=== PATIENT | female | born 1955 | race African-American/Black ===

== ENCOUNTER 2016-12-08 11:01 | Emergency (ER) | payer MEDICAID, OTHER ==
[~2016-12-08] VITALS: Ht 160 cm; Wt 90.0 kg
[~2016-12-08 11:01] MED LIST: ASPI-1035 PO; BENA10TA3 PO; CALC-4 PO; FERR-63 PO; GLIP10TA10 PO; METF10002 PO; NAPR220C15 PO; PIOG15TA23 PO
[2016-12-08] MEDS ORDERED: SODIUM CHLORIDE 0.9% 10ML VIAL ONE (12:03)
[2016-12-08] MEDS ORDERED: IOHEXOL-300 100 ML BOTTLE ONE (12:03)
[2016-12-08 16:26] LABS: CHLORIDE 100 mEq/L (98-107); INDEX HEMOLYSI 1 (1-3); INDEX ICTERIC 1 (1-4); INDEX LIPEMIC 1 (1-3)
[2016-12-08 16:28] LABS: BASOPHILS % 0.4 % (0.0-2.0); EOSINOPHILS % 0.2 % (0.0-5.0); HEMATOCRIT. 41.5 % (36.0-48.0); HEMOGLOBIN. 13.6 g/dL (12.0-16.0); LYMPHOCYTES % 18.7 % (20.0-50.0); MEAN CORPUSCULAR HEMOGLOBIN 28.7 pg (28.0-32.0); MEAN CORPUSCULAR HGB CONC 32.7 g/dL (31.0-37.0); MEAN CORPUSCULAR VOLUME 87.6 fL (81.0-99.0); MEAN PLATELET VOLUME 7.1 fl (7.4-10.4); MONOCYTES % 3.9 % (2.0-8.0); NEUTROPHILS % 76.8 % (40.0-76.0); PLATELET 380 x1000/uL (130-400); RED BLOOD CELL COUNT 4.74 mill/uL (4.2-5.4); RED CELL DISTRIBUTION WIDTH 14.1 % (11.6-14.6); WHITE BLOOD COUNT 12.6 x1000/uL (4.5-11.0)
[2016-12-08 16:31] LABS: ALBUMIN 3.9 g/dL (3.4-5.0); ANION GAP 12; CALCIUM 9.8 mg/dL (8.5-10.1); CARBON DIOXIDE 30 mEq/L (21-32); UREA NITROGEN BLOOD 13 mg/dL (7-21)
[2016-12-08 16:33] LABS: HCG SCREEN NEGATIVE
[2016-12-08 16:34] LABS: ALANINE AMINOTRANSFERASE 19 IU/L (13-61); LIPASE 129 IU/L (73-393); eGFR > 60 mL/min (>60)
[2016-12-08] MEDS ORDERED: ONDANSETRON HCL 4MG/2ML VIAL IV STA (17:06)
[2016-12-08] MEDS ORDERED: SODIUM CHLORIDE 0.9% 1,000 ML IV ONE ×2 (17:06→18:25)
[2016-12-08] MEDS ORDERED: MORPHINE SULFATE 4 MG/ML CPJ (NOT FOR IM USE) IV STA (17:06)
[2016-12-08] MEDS ORDERED: LORAZEPAM 2MG/ML CPJ IV ONE (17:15)
[2016-12-08 17:44] LABS: CREATINE KINASE 84 IU/L (26-192); INDEX HEMOLYSI 1 (1-3); TROPONIN I < 0.02 ng/mL (0.00-0.04)
[2016-12-08] MEDS ORDERED: ACETYLCYSTEINE 200MG/ML 20% VIAL 4ML PO ONE (18:30)
[2016-12-08 18:55] LABS: CLARITY URINE CLEAR (CLEAR); COLOR URINE YELLOW (YELLOW); GLUCOSE URINE NEGATIVE (NEGATIVE); KETONES URINE 1+ (NEGATIVE); LEUKOCYTE ESTERASE URINE TRACE (NEGATIVE); NITRITE URINE NEGATIVE (NEGATIVE); OCCULT BLOOD URINE NEGATIVE (NEGATIVE); PH URINE >=9.0 (4.5-8.0); PROTEIN URINE TRACE (NEGATIVE); SPECIFIC GRAVITY URINE 1.016 (1.005-1.030)
[2016-12-08 19:47] LABS: SQUAMOUS EPITHELIAL CELL URINE FEW /lpf (RARE/1+)
[2016-12-08 19:48] LABS: BACTERIA URINE 1+; WBC URINE 0-2 /hpf (0-2)
[2016-12-08 22:40] VITALS: BP 138/80
== END 2016-12-08 23:58 | disposition home or self-care (01) ==
LOC: ER 11:02
DX: K86.89 Other specified diseases of pancreas (principal); R10.13 Epigastric pain; I10 Essential (primary) hypertension; R11.2 Nausea with vomiting, unspecified; E11.9 Type 2 diabetes mellitus without complications; R19.7 Diarrhea, unspecified; Z90.49 Acquired absence of other specified parts of digestive tract
CPT/HCPCS: 36415; 71010; 74177; 76705; 80053; 81001; 82550; 82553; 83690; 84484; 84703; 85025; 93005; 96361; 96374; 96375; 99285; A4216; J2060; J2270; J2405; J7030; J7608; Q9967

== ENCOUNTER 2016-12-09 07:12 | Emergency (ER) | payer MEDICAID ==
[~2016-12-09] VITALS: Ht 157.5 cm; Wt 87.0 kg
[2016-12-09] MEDS ORDERED: FAMOTIDINE 20MG/2ML VIAL IV STA (08:12)
[2016-12-09] MEDS ORDERED: SODIUM CHLORIDE 0.9% 1,000 ML IV ONE (08:12)
[2016-12-09] MEDS ORDERED: METOCLOPRAMIDE HCL 10MG/2ML VIAL IV STA (08:12)
[2016-12-09 08:27] LABS: BASOPHILS % 0.5 % (0.0-2.0); EOSINOPHILS % 0.3 % (0.0-5.0); HEMATOCRIT. 36.7 % (36.0-48.0); HEMOGLOBIN. 12.5 g/dL (12.0-16.0); LYMPHOCYTES % 22.9 % (20.0-50.0); MEAN CORPUSCULAR HEMOGLOBIN 29.2 pg (28.0-32.0); MEAN CORPUSCULAR HGB CONC 33.9 g/dL (31.0-37.0); MEAN CORPUSCULAR VOLUME 86.2 fL (81.0-99.0); NEUTROPHILS % 70.3 % (40.0-76.0); PLATELET 326 x1000/uL (130-400); RED BLOOD CELL COUNT 4.26 mill/uL (4.2-5.4); RED CELL DISTRIBUTION WIDTH 13.8 % (11.6-14.6); WHITE BLOOD COUNT 11.5 x1000/uL (4.5-11.0)
[2016-12-09 08:36] LABS: PARTIAL THROMBOPLASTIN TIME 25.6 sec (24.0-34.0); PROTHROMBIN TIME 10.4 sec
[2016-12-09 08:40] LABS: ALANINE AMINOTRANSFERASE 16 IU/L (13-61); ALBUMIN 3.4 g/dL (3.4-5.0); ANION GAP 11; CALCIUM 9.3 mg/dL (8.5-10.1); CARBON DIOXIDE 28 mEq/L (21-32); CHLORIDE 106 mEq/L (98-107); INDEX HEMOLYSI 1 (1-3); INDEX ICTERIC 1 (1-4); INDEX LIPEMIC 1 (1-3); LIPASE 173 IU/L (73-393); UREA NITROGEN BLOOD 12 mg/dL (7-21); eGFR > 60 mL/min (>60)
[2016-12-09 08:53] LABS: CLARITY URINE CLEAR (CLEAR); COLOR URINE YELLOW (YELLOW); GLUCOSE URINE TRACE (NEGATIVE); KETONES URINE TRACE (NEGATIVE); LEUKOCYTE ESTERASE URINE 1+ (NEGATIVE); NITRITE URINE NEGATIVE (NEGATIVE); OCCULT BLOOD URINE 1+ (NEGATIVE); PH URINE 6.5 (4.5-8.0); PROTEIN URINE TRACE (NEGATIVE); SPECIFIC GRAVITY URINE 1.025 (1.005-1.030)
[2016-12-09 09:18] LABS: MUCUS URINE 2+ /lpf (< = 2+); SQUAMOUS EPITHELIAL CELL URINE 2+ /lpf (RARE/1+)
[2016-12-09 09:19] LABS: BACTERIA URINE 2+; WBC URINE 0-2 /hpf (0-2)
[2016-12-09 10:36] VITALS: BP 133/64
== END 2016-12-09 10:45 | disposition home or self-care (01) ==
LOC: ER 07:59
DX: E11.43 Type 2 diabetes mellitus with diabetic autonomic (poly)neuropathy (principal); K31.84 Gastroparesis; N39.0 Urinary tract infection, site not specified; R11.2 Nausea with vomiting, unspecified; R19.7 Diarrhea, unspecified; I10 Essential (primary) hypertension; Z90.49 Acquired absence of other specified parts of digestive tract; Z79.82 Long term (current) use of aspirin
CPT/HCPCS: 36415; 80053; 81001; 83690; 85025; 85610; 85730; 93005; 96361; 96374; 96375; 99285; J2765; J3490; J7030; Z7610

== ENCOUNTER 2024-07-25 13:33 | Emergency (ER) | payer BC, MEDICAID ==
[~2024-07-25] VITALS: Ht 165.1 cm; Wt 86.0 kg
[~2024-07-25 13:33] MED LIST changes: -ASPI-1035 PO; +ASPI-1497 PO; -BENA10TA3 PO; +BENA10TA74 PO; -GLIP10TA10 PO; +GLIP10TA17 PO; +METF-416 PO; -METF10002 PO; -PIOG15TA23 PO; +PIOG15TA68 PO
[2024-07-25 13:36] VITALS: TEMP 97.4; O2SAT 98
[2024-07-25] MEDS: ONDANSETRON HCL 4MG/2ML INJ IV STA (13:55)
[2024-07-25] MEDS: MORPHINE SULFATE 4 MG/ML INJ (FOR IV/IM USE) IV STA (13:55)
[2024-07-25 14:18] LABS: BASOPHILS % 0.3 % (0.0-2.0); EOSINOPHILS % 0.2 % (0.0-5.0); HEMATOCRIT. 41.1 % (36.0-48.0); HEMOGLOBIN. 13.7 g/dL (12.0-16.0); LYMPHOCYTES % 18.2 % (20.0-50.0); MEAN CORPUSCULAR HGB CONC 33.3 g/dL (31.0-37.0); MEAN CORPUSCULAR VOLUME 90.1 fL (81.0-99.0); MEAN PLATELET VOLUME 7.2 fl (7.4-10.4); MONOCYTES % 4.1 % (2.0-8.0); NEUTROPHILS % 77.2 % (40.0-76.0); PLATELET 348 x1000/uL (130-400); RED BLOOD CELL COUNT 4.56 mill/uL (4.2-5.4); RED CELL DISTRIBUTION WIDTH 14.3 % (11.6-14.6); WHITE BLOOD COUNT 10.9 x1000/uL (4.5-11.0)
[2024-07-25 14:24] LABS: CHLORIDE 108 mEq/L (98-107); POTASSIUM 4.2 mEq/L (3.5-5.1); SODIUM 138 mEq/L (136-145)
[2024-07-25 14:25] LABS: CALCIUM 9.7 mg/dL (8.7-10.4); CARBON DIOXIDE 23 mEq/L (21-32)
[2024-07-25 14:28] LABS: INR 0.9; PROTHROMBIN TIME 9.9 sec (9.6-11.0)
[2024-07-25 14:30] LABS: CREATININE 0.7 mg/dL (0.6-1.0); GLUCOSE 175 mg/dL (70-105); UREA NITROGEN BLOOD 10 mg/dL (9-23)
[2024-07-25 14:31] LABS: TROPONIN I HIGH SENSITIVITY 5 ng/L (3.0-34)
[2024-07-25 14:32] LABS: ALANINE AMINOTRANSFERASE 25 IU/L (10-49); ALBUMIN 4.2 g/dL (3.2-4.8); ASPARTATE AMINOTRANSFERASE 24 IU/L (<34); BILIRUBIN DIRECT 0.2 mg/dL (<=3.0); BILIRUBIN TOTAL 0.4 mg/dL (0.1-1.0)
[2024-07-25 15:43] VITALS: BP 170/93; PULSE 89; RESP 15; O2SAT 95
[2024-07-25] MEDS ORDERED: LOPE2CAP MT (16:11)
[2024-07-25] MEDS ORDERED: ONDA-239 PO (16:11)
[2024-07-25] MEDS ORDERED: MAG-55 MT (16:11)
== END 2024-07-25 17:24 | disposition home or self-care (01) ==
LOC: ER 13:44
DX: R10.11 Right upper quadrant pain (principal); I10 Essential (primary) hypertension; E11.9 Type 2 diabetes mellitus without complications; Z79.82 Long term (current) use of aspirin; Z79.899 Other long term (current) drug therapy; Z90.49 Acquired absence of other specified parts of digestive tract
CPT/HCPCS: 99285; 74176; 96374; 96375; 80076; 80048; 83690; 85025; 85610; 84484; 36415; J2405; J2270